=== PATIENT | female | born 1965 ===

== ENCOUNTER 2019-01-25 11:54 | Emergency (ER) | payer SELFPAY ==
[~2019-01-25] VITALS: Ht 150 cm; Wt 70.0 kg
[2019-01-25 12:02] VITALS: BP 147/75; PULSE 78; TEMP 97.4
[2019-01-25] MEDS ORDERED: AMARYL4 MG PO (12:16)
[2019-01-25] MEDS ORDERED: JANUMET 1000 MG1 TA1 PO ×2 (12:17→12:32)
[2019-01-25] MEDS ORDERED: AMARYL 2MG T2 MG/TAB PO (12:32)
== END 2019-01-25 12:00 | disposition home or self-care (01) ==
LOC: COL.ER 11:54
DX: E11.9 Type 2 diabetes mellitus without complications (principal); Z76.0 Encounter for issue of repeat prescription; Z79.84 Long term (current) use of oral hypoglycemic drugs